=== PATIENT | female | born 1985 | race Caucasian/White ===

== ENCOUNTER 2019-01-23 21:55 | Emergency (ER) | payer OTHER ==
[~2019-01-23] VITALS: Ht 175.3 cm; Wt 86.2 kg
[2019-01-24] MEDS ORDERED: Prednisone20 MG PO (00:03)
== END 2019-01-24 00:08 | disposition home or self-care (01) ==
LOC: ER 21:55
DX: T49.8X1A Poisoning by other topical agents, accidental (unintentional), initial encounter (principal); L25.0 Unspecified contact dermatitis due to cosmetics; Z91.011 Allergy to milk products
CPT/HCPCS: 99283; J7512

== ENCOUNTER → 2019-04-28 | Outpatient (CLI) | payer OTHER ==
[~2019-04-28] MED LIST: Prednisone20 MG PO
[2019-04-30 15:07] LABS: HPV 16 Negative (Negative); HPV 18 Negative (Negative); HPV OTHER HR TYPES Negative (Negative)
== END | disposition home or self-care (01) ==
LOC: LAB SHORT 13:49 → LAB 13:49 → EDSTATUS 04-28 11:45 → LAB FUT 04-28 11:45
PROVIDERS: Physician Assistant
DX: Z12.4 Encounter for screening for malignant neoplasm of cervix (principal)
CPT/HCPCS: 87624; G0123